=== PATIENT | male | born 1985 | race Caucasian/White ===

== ENCOUNTER 2024-07-10 01:57 | Emergency (ER) | payer MEDICAID ==
[~2024-07-10] VITALS: Ht 182.9 cm; Wt 75.0 kg
[2024-07-10] MEDS ORDERED: ibuprofen tablet 400 MG TABLET PO ONE (02:55)
[2024-07-10] MEDS: ibuprofen 200mg tablet PO ONE (03:20)
[2024-07-10] MEDS: acetaminophen 325mg tablet PO ONE (03:20)
[2024-07-10] MEDS ORDERED: NO HOME MEDS (04:36)
[2024-07-10 06:14] VITALS: BP 127/90; PULSE 79; RESP 16; TEMP 98; O2SAT 100
== END 2024-07-10 06:17 | disposition home or self-care (01) ==
LOC: EDBD 01:59 → ER 01:59
DX: S82.001A Unspecified fracture of right patella, initial encounter for closed fracture (principal); Z88.0 Allergy status to penicillin; V09.9XXA Pedestrian injured in unspecified transport accident, initial encounter; Y93.89 Activity, other specified; Y92.89 Other specified places as the place of occurrence of the external cause; Y99.8 Other external cause status
CPT/HCPCS: 73564; 99283

== ENCOUNTER 2024-07-23 01:10 | Emergency (ER) | payer MEDICAID ==
[~2024-07-23] VITALS: Ht 182.9 cm; Wt 80.0 kg
[~2024-07-23 01:10] MED LIST: NO HOME MEDS
[2024-07-23 01:12] VITALS: BP 137/92; PULSE 92; TEMP 98.1; O2SAT 99
[2024-07-23] MEDS ORDERED: LIDO700A32 TOP (01:30)
[2024-07-23] MEDS ORDERED: DICL20GE TOP (01:30)
[2024-07-23] MEDS ORDERED: NAPR-56 PO (01:30)
[2024-07-23 01:34] VITALS: RESP 16
[2024-07-23] MEDS: ketorolac trometh 30MG/ML vial 30 MG/ML VIAL IM ONE (01:34)
== END 2024-07-23 01:45 | disposition home or self-care (01) ==
LOC: ER 01:11
DX: S82.001A Unspecified fracture of right patella, initial encounter for closed fracture (principal); Z88.0 Allergy status to penicillin; V89.2XXA Person injured in unspecified motor-vehicle accident, traffic, initial encounter; Y93.89 Activity, other specified; Y92.89 Other specified places as the place of occurrence of the external cause; Y99.8 Other external cause status
CPT/HCPCS: 96372; 99283; J1885; A6449

== ENCOUNTER 2024-08-02 22:21 | Emergency (ER) | payer MEDICAID ==
[~2024-08-02] VITALS: Ht 182.9 cm; Wt 78.2 kg
[~2024-08-02 22:21] MED LIST changes: +DICL20GE TOP; +LIDO700A32 TOP; +NAPR-56 PO
[2024-08-02 23:25] LABS: BILIRUBIN,URINE NEGATIVE (Neg); CLARITY,URINE CLEAR (Clear); COLOR,URINE YELLOW (Yellow); GLUCOSE, URINE NEGATIVE (Neg); KETONES,URINE NEGATIVE (Neg); LEUKOCYTE ESTERASE ,URINE TRACE (Neg); NITRITES, URINE NEGATIVE (Neg); OCCULT BLOOD,URINE NEGATIVE (Neg); PROTEIN,URINE NEGATIVE (Neg); UROBILINOGEN,URINE 0.2 E.U/dL (0.2-1.0)
[2024-08-02 23:32] LABS: UA COLLECTION TYPE CLN CATCH MIDSTREAM
[2024-08-02 23:35] LABS: BACTERIA,URINE FEW /HPF (Neg); RBC,URINE NONE SEEN /HPF (0-2); SQUAMOUS EPITHELIAL CELL,UR FEW /LPF (FEW); WBC,URINE 0-4 /HPF (0-4)
[2024-08-02 23:41] LABS: URINE AMPHETAMINE SCREEN NEGATIVE (Neg); URINE BARBITUATE SCREEN NEGATIVE (Neg); URINE BENZODIAZEPINES SCREEN NEGATIVE (Neg); URINE CANNABINOID SCREEN POSITIVE (Neg); URINE COCAINE SCREEN NEGATIVE (Neg); URINE METHADONE SCREEN NEGATIVE (Neg); URINE OPIATE SCREEN NEGATIVE (Neg); URINE PHENCYCLIDINE SCREEN NEGATIVE (Neg)
[2024-08-02 23:43] LABS: BASOPHILS % (AUTO) 0.5 % (0-1); EOSINOPHILS # (AUTO) 0.2 X10'3 (0-0.9); EOSINOPHILS % (AUTO) 2.4 % (0-6); LYMPHOCYTES # (AUTO) 3.1 X10'3 (1.1-4.8); LYMPHOCYTES % (AUTO) 30.3 % (21-51); MEAN CORPUSCULAR HEMOGLOBIN 31.4 PG (27.0-31.0); MEAN CORPUSCULAR VOLUME 92.4 FL (78-98); MEAN PLATELET VOLUME 8.3 FL (7.4-10.4); MONOCYTES # (AUTO) 0.7 X10'3 (0-0.9); MONOCYTES % (AUTO) 6.4 % (2-12); NEUTROPHILS # (AUTO) 6.2 X10'3 (1.8-7.7); NEUTROPHILS % (AUTO) 60.4 % (42-75); PLATELET COUNT 277 X10'3 (140-440); RED BLOOD COUNT 4.76 X10'6 (4.70-6.10); WHITE BLOOD COUNT 10.3 X10'3 (4.5-11.0)
[2024-08-03 00:06] LABS: ALBUMIN 4.2 G/DL (3.4-5.0); ANION GAP 8 (8-16); BLOOD UREA NITROGEN 12 MG/DL (7-18); BUN/CREATININE RATIO 12.9 (10.0-20.0); CALCIUM 9.4 MG/DL (8.5-10.1); CHLORIDE 103 MMOL/L (99-107); CREATININE 0.93 MG/DL (0.60-1.10); ETHANOL < 10 MG/DL (<10); GLUCOSE 107 MG/DL (70-104); POTASSIUM 4.6 MMOL/L (3.5-5.1); SODIUM 142 MMOL/L (135-145); THYROID STIMULATING HORMONE 2.12 ulU/ml (0.34-4.50); TOTAL CARBON DIOXIDE 30.9 MMOL/L (24-32); eCRCL 117 ML/MIN; eGFR 90 ML/MIN
[2024-08-03] MEDS: LORazepam 1 MG tablet PO ONE (00:17)
[2024-08-03] MEDS: diphenhydrAMINE 25mg capsule PO ONE (00:17)
[2024-08-03 11:05] VITALS: BP 122/71; PULSE 60; RESP 15; TEMP 98; O2SAT 97
== END 2024-08-03 11:44 | disposition home or self-care (01) ==
LOC: ER 22:22
DX: R45.851 Suicidal ideations (principal); Z88.0 Allergy status to penicillin; Z20.822 Contact with and (suspected) exposure to COVID-19
CPT/HCPCS: 36415; 80048; 80305; 80320; 81001; 84443; 85025; 87811; 99284; Q0163

== ENCOUNTER 2024-08-03 13:38 | Emergency (ER) | payer MEDICAID ==
[~2024-08-03] VITALS: Ht 182.9 cm; Wt 80.0 kg
[~2024-08-03 13:38] MED LIST changes: -DICL20GE TOP; -LIDO700A32 TOP; -NAPR-56 PO
[2024-08-03] MEDS: naproxen 500mg tablet PO ONE (18:00)
[2024-08-04] MEDS: naproxen 500mg tablet PO ONE (07:50)
[2024-08-04 07:52] VITALS: BP 112/81; PULSE 90; RESP 16; TEMP 98.8; O2SAT 97
== END 2024-08-04 07:56 | disposition left against medical advice (07) ==
LOC: ER 13:38
DX: S82.041A Displaced comminuted fracture of right patella, initial encounter for closed fracture (principal); Z88.0 Allergy status to penicillin; X58.XXXA Exposure to other specified factors, initial encounter; Y93.89 Activity, other specified; Y92.89 Other specified places as the place of occurrence of the external cause; Y99.8 Other external cause status
CPT/HCPCS: 73564; 97116; 97161; 97530; 99283

== ENCOUNTER 2024-10-25 11:24 | Emergency (ER) | payer MEDICAID ==
[~2024-10-25] VITALS: Ht 182.9 cm; Wt 72.7 kg
[2024-10-25 11:28] VITALS: BP 145/95; PULSE 111; RESP 20; TEMP 99; O2SAT 98
== END 2024-10-25 12:15 ==
LOC: ER 11:24
DX: S82.091A Other fracture of right patella, initial encounter for closed fracture (principal); Z88.0 Allergy status to penicillin; X58.XXXA Exposure to other specified factors, initial encounter; Y93.89 Activity, other specified; Y92.89 Other specified places as the place of occurrence of the external cause; Y99.8 Other external cause status
CPT/HCPCS: 73560; 99283